=== PATIENT | male | born 1965 | race Caucasian/White ===

== ENCOUNTER 2017-07-11 14:52 | Emergency (ER) | payer BC ==
[2017-07-11 14:57] VITALS: BMI 31.7
--- NOTE | 2017-07-11 15:14 | PDOC ---
Attending Attestation - Resident Resident Name: Gail Reed - ED Attending Attestation I have performed the following: I have examined & evaluated the patient, The case was reviewed & discussed with the resident, I agree w/resident's findings & plan, Exceptions are as noted - HPI HPI: 07/11/17 15:11 Feels like something stuck in his throat - Physicial Exam PE: 07/11/17 15:12 airway patent / no drooling - Medical Decision Making 07/11/17 15:[address] Reed's Assessment and Plan
[2017-07-11] MEDS ORDERED: GLUCAGON 1 MG KIT IVPUSH ONE (15:45)
[2017-07-11] MEDS ORDERED: LORazepam 2 MG/ML SDV VIAL ONE (15:49)
[2017-07-11] MEDS ORDERED: GlUCAGON HUMAN RECOMBINANT 1 MG/VIAL ONE ×2 (15:49→17:18)
[2017-07-11 16:01] LABS: EOSINOPHIL 3.8 % (0-4.5); MCH 29.5 pg (25.7-33.7); MCHC 33.7 g/dl (32.0-35.9); MEAN CELL VOLUME 87.7 fl (80-96); MEAN PLT VOLUME 8.4 fl (7.5-11.1); NEUTROPHILS 64.9 % (42.8-82.8); PLATELET COUNT 244 K/MM3 (134-434); RDW 13.4 % (11.9-15.9); WHITE BLOOD COUNT 8.4 K/mm3 (4.0-10.0)
--- NOTE | 2017-07-11 16:03 | PDOC ---
History of Present Illness - General Chief Complaint: Dysphagia Stated Complaint: SOB Time Seen by Provider: 07/11/17 15:11 History Source: Patient Exam Limitations: No Limitations - History of Present Illness Initial Comments: 52yo M with PMH of esophageal narrowing presents c/o dysphagia since 12:30pm (3 hrs). Pt reports he was eating lunch and suddenly could not keep anything down. He had nbnb vomiting, bringing back up anything he tried to swallow ( water, food). Pt reports this has happened before, it happens about once per month. He usually just waits and the symptoms subside, but he came to ER today because the symptoms did not subside. He also c/o SOB at time of incident which has now resolved. GI: Dr. Toni Hernandez at [facility] 07/11/17 15:54 07/11/17 16:03 Timing/Duration: 1-3 hours Severity: mild Associated Symptoms: denies: chest pain, diaphoresis, fever/chills Past History - Past Medical History Allergies/Adverse Reactions: Allergies Allergy/AdvReac Type Severity Reaction Status Date / Time No Known Allergies Allergy Verified 07/11/17 14:54 Home Medications: Ambulatory Orders NK [No Known Home Medication] 07/11/17 Cardiac Disorders: Yes GI Disorders: Yes (esophageal narrowing) Other medical history: DENIES. - Surgical History Cardiac Surgery: Yes (STENT.) - Family Disease History Family Disease History: Heart Disease: Father (open heart surgery, passed at age 62), Other: Brother (esophageal narrowing) - Psycho/Social/Smoking Cessation Hx Anxiety: No Suicidal Ideation: No Smoking History: Current every day smoker Years of Tobacco Use: 25 Number of Cigarettes Smoked Daily: 30 Information on smoking cessation initiated: No Hx Alcohol Use: Yes (BEER, 1 daily) Drug/Substance Use Hx: No Substance Use Type: Alcohol Review of Systems - Review of Systems Able to Perform ROS?: Yes Is the patient limited [place] proficient: No Constitutional: No: Chills, Diaphoresis, Fever HEENTM: No: Recent change in vision, Ear Pain, Nose Pain, Throat Pain Respiratory: No: Cough, Orthopnea, Shortness of Breath, Stridor, Wheezing, Hemoptysis Cardiac (ROS): No: Chest Pain, Irregular Heart Rate, Palpitations ABD/GI: Yes: Vomiting. No: Constipated, Diarrhea, Rectal Bleeding, Abdominal cramping : No: Dysuria, Hematuria Musculoskeletal: No: Joint Pain, Muscle Pain Neurological: No: Headache, Dizziness *Physical Exam - Vital Signs Last Vital Signs Temp Pulse Resp BP Pulse Ox 97.6 F 78 22 166/78 98 07/11/17 14:53 07/11/17 14:53 07/11/17 14:53 07/11/17 14:53 07/11/17 15:20 - Physical Exam General Appearance: Yes: Nourished, Appropriately Dressed. No: Apparent Distress HEENT: positive: EOMI, Normal Voice, Other (moist mucous membranes). negative: Pale Conjunctivae, Scleral Icterus (R), Scleral Icterus (L) Neck: positive: Trachea midline, Supple. negative: Stridor Respiratory/Chest: positive: Lungs Clear, Normal Breath Sounds. negative: Accessory Muscle Use Cardiovascular: positive: Regular Rhythm, Regular Rate, S1, S2. negative: Murmur Gastrointestinal/Abdominal: positive: Soft. negative: Tender, Distended, Guarding, Rebound Integumentary: positive: Dry, Warm. negative: Rash Neurologic: positive: Fully Oriented, Alert, Normal Mood/Affect, Normal Response Heart Score/ECG Review #1 General ECG Interpretation: Sinus Rhythm, Normal Rate, Normal Intervals, No acute ischemic changes ED Treatment Course - LABORATORY CBC & Chemistry Diagram: 07/11/17 15:45 07/11/17 15:45 Medical Decision Making - Medical Decision Making 52yo M with PMH of esophageal narrowing presenting c/o dysphagia. This has happened for pt before, about once per month, but normally it subsides on its own. Pt takes Pantoprazole 40mg and follows GI. Glucagon 1mg IVPush Ativan 1mg IVPush 07/11/17 16:14 07/11/17 18:02 Test of drinking water performed after first dose of Glucagon and Ativan. Pt vomited the water back up. Glucagon 1mg IVPush (2nd dose) given 20 minutes later pt tolerated test of drinking water. Pt advised that he can go home, but he needs to follow-up with his GI doctor (Dr. Toni Hernandez). *DC/Admit/Observation/Transfer Diagnosis at time of Disposition: Dysphagia - Discharge Dispostion Disposition: HOME Condition at time of disposition: Improved Admit: No - Patient Instructions Additional Instructions: Please follow up with GI doctor Toni Hernandez.
[2017-07-11 16:41] LABS: ANION GAP 12 (8-16); BILIRUBIN,TOTAL 0.6 mg/dL (0.2-1.0); CALCIUM 9.1 mg/dL (8.5-10.1); CO2 24 mmol/L (21-32); GLUCOSE,RANDOM 125 mg/dL (74-106); SGOT/AST 22 U/L (15-37); SGPT/ALT 36 U/L (12-78); TOT PROT 7.2 g/dl (6.4-8.2)
[2017-07-11 16:42] LABS: ALK PHOS 81 U/L (45-117)
[2017-07-11 18:22] VITALS: BP 130/70; PULSE 82; TEMP 98.2
--- NOTE | 2017-07-12 13:14 | EKG ---
Test Reason : Blood Pressure : / mmHG Vent. Rate : 073 BPM Atrial Rate : 073 BPM P-R Int : 166 ms QRS Dur : 102 ms QT Int : 406 ms P-R-T Axes : 053 074 068 degrees QTc Int : 447 ms NORMAL SINUS RHYTHM NORMAL ECG WHEN COMPARED WITH ECG OF 11-FEB-2009 10:23, QT HAS LENGTHENED REPEAT EKG IF CLINICALLY INDICATED Confirmed by JEANIE LAUREN MD ([id number]) on 07/12/2017 1:14:37 PM Referred By: Confirmed By:JEANIE LAUREN MD
== END 2017-07-11 18:22 | disposition home or self-care (01) ==
LOC: JER 14:52
PROC: 3E033NZ Introduction of Analgesics, Hypnotics, Sedatives into Peripheral Vein, Percutaneous Approach (ICD-10-PCS; principal; 2017-07-11)
PROC: 3E033GC Introduction of Other Therapeutic Substance into Peripheral Vein, Percutaneous Approach (ICD-10-PCS; 2017-07-11)
DX: R13.19 Other dysphagia (principal); K22.2 Esophageal obstruction
CPT/HCPCS: 36415; 80053; 85025; 86850; 86900; 86901; 93005; 93010; 99284-25

== ENCOUNTER 2019-07-29 18:49 | Observation (INO) | payer BC ==
[2019-07-29 19:02] VITALS: BMI 31.7
--- NOTE | 2019-07-29 19:30 | PDOC ---
Documentation entered by Andrea Madrigal SCRIBE, acting as scribe for Lisette Jones MD. Lisette Jones MD: This documentation has been prepared by the Rohan cordon Xhesika, SCRIBE, under my direction and personally reviewed by me in its entirety. I confirm that the documentation accurately reflects all work, treatment, procedures, and medical decision making performed by me. History of Present Illness - General Chief Complaint: Chest Pain Stated Complaint: CHEST PAIN History Source: Patient Exam Limitations: No Limitations - History of Present Illness Initial Comments: 07/29/19 19:18 The patient is a 54 year old male, with a significant PMH of HLD, esophageal narrowing and coronary stent (2008) who presents to the emergency department with 1hr of persistent chest pain. Patient states he was driving from work when he felt sudden onset of chest pain associated with L arm numbness, SOB and hot flashes. Patient notes he endorsed similar symptoms in the past, however, his previous symptoms self resolved after a few minutes. Patient notes he took his daily dose of Aspirin. Patient notes his last stress test was roughly 2-3 years ago. FAMILY HISTORY: no pertinent history SOCIAL HISTORY: Pt lives with family and is employed. MEDICATIONS: reviewed ALLERGIES: As per nursing notes 07/29/19 19:30 Assessment and plan: This is a 54-year-old male who comes in complaining of proximal one hour substernal chest pain associated with some shortness of breath and feeling of hot sensation. Patient said chest pain also was associated with some left arm numbness. Patient takes an aspirin a day and to take his aspirin today. Workup initiated including CBC, comp, EKG, chest x-ray, cardiac enzymes, UA. Patient will be admitted to a telemetry bed to rule him out for ACS 07/29/19 20:16 Reevaluation patient's pain is now completely resolved. His troponin was 0.03 however his heart score is 4. Patient will be admitted to a telemetry bed. Patient will be under the hospitalist service. Past History - Past Medical History Allergies/Adverse Reactions: Allergies Allergy/AdvReac Type Severity Reaction Status Date / Time No Known Allergies Allergy Verified 07/29/19 18:55 Home Medications: Ambulatory Orders Aspirin Coated [Ecotrin -] 81 mg PO DAILY 07/29/19 Cholecalciferol (Vitamin D3) [Vitamin D3 -] 1,000 unit PO DAILY 07/29/19 Pantoprazole Sodium [Protonix] 40 mg PO DAILY 07/29/19 Rosuvastatin [Crestor -] 10 mg PO HS 07/29/19 Cardiac Disorders: Yes COPD: No GI Disorders: Yes (esophageal narrowing) - Surgical History Cardiac Surgery: Yes (STENT X1) - Family Disease History Family Disease History: Heart Disease: Father (open heart surgery, passed at age 62), Other: Brother (esophageal narrowing) - Suicide/Smoking/Psychosocial Hx Smoking History: Current every day smoker Years of Tobacco Use: 25 Have you smoked in the past 12 months: Yes Number of Cigarettes Smoked Daily: 25 Information on smoking cessation initiated: Yes Hx Alcohol Use: Yes Drug/Substance Use Hx: No Substance Use Type: Alcohol Review of Systems - Review of Systems Able to Perform ROS?: Yes Comments:: 07/29/19 19:19 General: No fevers or chills, no weakness, no weight loss. (+) hot flashes. HEENT: No change in vision. No sore throat,. No ear pain CardioVascular: (+) chest pain. (+) L arm numbness. (+) SOB. Respiratory:No cough, or wheezing. Gastrointestinal: no nausea, vomiting, diarrhea or constipation, No rectal bleeding Genitourinary: No dysuria, hematuria, or frequency Musculoskeletal: No joint or muscle pain or swelling Neurologic: No headache, vertigo, dizziness or loss of consciousness Psychiatric: nor depression Skin: No rashes or easy bruising Endocrine: no increased thirst or abnormal weight change Allergic: no skin or latex allergy All other systems reviewed and normal *Physical Exam - Vital Signs Last Vital Signs Temp Pulse Resp BP Pulse Ox 98.2 F 75 18 165/98 95 07/29/19 18:51 07/29/19 19:30 07/29/19 19:30 07/29/19 19:30 07/29/19 19:30 - Physical Exam Comments: 07/29/19 19:20 General: Well-nourished, well-developed individual, no acute distress HEENT: Throat: Normal, tonsils normal, no erythema or exudate Neck: Supple, no meningeal signs, no lymphadenopathy Eyes::Pupils equal reactive and round, extraocular motion intact Chest: Nontender to palpation Cardiac: S1-S2 normal, regular rate and rhythm, no murmurs rubs or gallops Respiratory: Lungs clear to auscultation bilateral Abdomen: Soft, nondistended, normal bowel sounds, nontender to palpation diffusely Extremities: Warm, dry, no cyanosis, clubbing, or edema Skin: No rashes Neuro: Alert and oriented x3, nonfocal exam, grossly intact, normal gait Psych: Normal mood and affect Heart Score/ECG Review - History History: Slightly suspicious - Electrocardiogram EKG: Non specific repolarization disturbance - Age Age: 45-65 - Risk Factors Risk Factors Heart Score: Yes Hx Hypercholesterolemia, Yes Hx Hypertension, Yes Positive family hx of cardiac disease Based on the list above the patient has:: >/=3 risk factors or Hx atherosclerotic disease - Troponin Troponin: </= normal limit - Score Heart Score - Total: 4 ED Treatment Course - LABORATORY CBC & Chemistry Diagram: 07/29/19 19:47 07/29/19 19:47 - ADDITIONAL ORDERS Additional order review: Laboratory Results 07/29/19 07/29/19 07/29/19 19:47 19:47 19:47 PT with INR 12.5 INR 1.12 Sodium 136 Potassium 3.8 Chloride 99 Carbon Dioxide 26 Anion Gap 11 BUN 14.0 Creatinine 0.7 Est GFR (CKD-EPI)AfAm 122.27 Est GFR (CKD-EPI)NonAf 105.50 Random Glucose 111 H Calcium 9.2 Total Bilirubin 0.5 AST 29 ALT 35 Alkaline Phosphatase 65 Creatine Kinase 239 Troponin I 0.03 Total Protein 7.2 Albumin 4.2 07/29/19 19:47 RBC 5.55 MCV 88.8 MCHC 33.3 RDW 12.5 MPV 8.0 Neutrophils % 60.4 Lymphocytes % 27.1 Monocytes % 6.5 Eosinophils % 4.8 H Basophils % 1.2 - RADIOLOGY Radiology Studies Ordered: Category Date Time Status CHEST X-RAY PORTABLE* [RAD] Stat Radiology 07/29/19 19:28 Ordered *DC/Admit/Observation/Transfer Diagnosis at time of Disposition: Chest pain Qualifiers: Chest pain type: unspecified Qualified Code(s): R07.9 - Chest pain, unspecified - Discharge Dispostion Condition at time of disposition: Good Decision to Admit order: Yes - Referrals - Patient Instructions - Post Discharge Activity
[2019-07-29 19:55] LABS: BASO % 1.2 % (0-2.0); EOS % 4.8 % (0-4.5); HEMATOCRIT 49.3 % (35.4-49); HEMOGLOBIN 16.4 GM/dl (11.7-16.9); LYMPH % 27.1 % (8-40); MCH 29.6 pg (25.7-33.7); MCHC 33.3 g/dl (32.0-35.9); MEAN CELL VOLUME 88.8 fl (80-96); MONO % 6.5 % (3.8-10.2); NEUT % 60.4 % (42.8-82.8); PLATELET COUNT 268 K/MM3 (134-434); RBC 5.55 M/mm3 (4.00-5.60); RDW 12.5 % (11.9-15.9); WHITE BLOOD COUNT 8.2 K/mm3 (4.0-10.8)
[2019-07-29 19:59] LABS: INR 1.12 (0.82-1.09); PROTHROMBIN TIME (PATIENT) 12.5 SEC (10.2-13.0)
[2019-07-29 20:04] LABS: ALBUMIN 4.2 g/dl (3.4-5.0); BILIRUBIN,TOTAL 0.5 mg/dl (0.2-1); CALCIUM 9.2 mg/dl (8.5-10); CREATININE 0.7 mg/dl (0.55-1.3); POTASSIUM 3.8 mmol/L (3.5-5.1); TOT PROT 7.2 g/dl (6.4-8.2)
--- NOTE | 2019-07-29 20:56 | HP ---
CHIEF COMPLAINT: Chest pain PCP: Ryley Beverly [facility] Dr. Balderas HISTORY OF PRESENT ILLNESS: The patient is a 54 year-old male, with a PMH significant for HLD, CAD s/p stent ([facility], 2009), peripheral arterial disease s/p right leg stent ([facility], 2018)and esophageal narrowing/dysphagia. Patient was driving from work when he felt a sudden onset of mid-sternal chest pain, SOB, feeling hot, and an "odd feeling" in his left arm. The pain lasted for about an hour. Patient had a similar episode a few months ago, same pain in the same location, lasted a few minutes. While in the ED, the patient had another, very brief episode of pain in same location lasting a few minutes, then resolved. 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 He denies palpitations, lightheadedness, orthopnea, and lower extremity edema. ER course was notable for: (1) Troponin neg x 1 (2) BP 189/116 Recent Travel: No PAST MEDICAL HISTORY: Hyperlipideia Coronary artery disease Esophageal narrowing/dysphagia PAST SURGICAL HISTORY: Coronary artery stent 2008 Social History: Smoking: current every day >1ppd for many years Alcohol: beers daily Drugs: denies Family History: Father (open heart surgery, passed at age 62), Mother 82 Alzheimers; Sister smoker with COPD; brother with MS Allergies No Known Allergies Allergy (Verified 07/29/19 18:55) HOME MEDICATIONS: Home Medications Medication Instructions Recorded Aspirin Coated [Ecotrin -] 81 mg PO DAILY 07/29/19 Cholecalciferol (Vitamin D3) 1,000 unit PO DAILY 07/29/19 [Vitamin D3 -] Pantoprazole Sodium [Protonix] 40 mg PO DAILY 07/29/19 Rosuvastatin [Crestor -] 10 mg PO HS 07/29/19 REVIEW OF SYSTEMS CONSTITUTIONAL: Absent: fever, chills, diaphoresis, generalized weakness, malaise, loss of appetite, weight change HEENT: Absent: rhinorrhea, nasal congestion, throat pain, throat swelling, difficulty swallowing, mouth swelling, ear pain, eye pain, visual changes CARDIOVASCULAR: +chest pain, SOB, left arm numbness, decreased exercise tolerance Absent: chest pain, syncope, palpitations, irregular heart rate, lightheadedness , peripheral edema RESPIRATORY: Absent: cough, shortness of breath, dyspnea with exertion, orthopnea, wheezing, stridor, hemoptysis GASTROINTESTINAL: Absent: abdominal pain, abdominal distension, nausea, vomiting, diarrhea, constipation, melena, hematochezia GENITOURINARY: Absent: dysuria, frequency, urgency, hesitancy, hematuria, flank pain, genital pain MUSCULOSKELETAL: Absent: myalgia, arthralgia, joint swelling, back pain, neck pain SKIN: Absent: rash, itching, pallor HEMATOLOGIC/IMMUNOLOGIC: Absent: easy bleeding, easy bruising, lymphadenopathy, frequent infections ENDOCRINE: Absent: unexplained weight gain, unexplained weight loss, heat intolerance, cold intolerance NEUROLOGIC: Absent: headache, focal weakness or paresthesias, dizziness, unsteady gait, seizure, mental status changes, bladder or bowel incontinence PSYCHIATRIC: Absent: anxiety, depression, suicidal or homicidal ideation, hallucinations. PHYSICAL EXAMINATION Vital Signs - 24 hr 07/29/19 07/29/19 07/29/19 18:51 19:00 19:30 Temperature 98.2 F Pulse Rate 79 Pulse Rate [ 74 75 Apical] Respiratory 18 18 18 Rate Blood Pressure 189/116 H Blood Pressure 180/100 H 165/98 [Right Arm] O2 Sat by Pulse 99 96 95 Oximetry (%) 07/29/19 20:25 Temperature Pulse Rate Pulse Rate [ 70 Apical] Respiratory 17 Rate Blood Pressure Blood Pressure 150/95 [Right Arm] O2 Sat by Pulse 95 Oximetry (%) GENERAL: Awake, alert, and fully oriented, in no acute distress. Anxious. HEAD: Normal with no signs of trauma. EYES: Pupils equal, round and reactive to light, extraocular movements intact, sclera anicteric, conjunctiva clear. No lid lag. LUNGS: Breath sounds equal, clear to auscultation bilaterally. No wheezes, and no crackles. No accessory muscle use. HEART: Regular rate and rhythm, S1 and S2 without murmur, rub or gallop. ABDOMEN: Soft, nontender, not distended MUSCULOSKELETAL: Normal range of motion at all joints. No bony deformities or tenderness. No CVA tenderness. UPPER EXTREMITIES: 2+ pulses, warm, well-perfused. No cyanosis. No clubbing. No peripheral edema. LOWER EXTREMITIES: 2+ pulses, warm, well-perfused. No calf tenderness. No peripheral edema. NEUROLOGICAL: Cranial nerves II-XII intact. Normal speech. Normal gait. SKIN: Warm, dry Laboratory Results - last 24 hr 07/29/19 07/29/19 07/29/19 19:47 19:47 19:47 WBC 8.2 RBC 5.55 Hgb 16.4 Hct 49.3 H MCV 88.8 MCH 29.6 MCHC 33.3 RDW 12.5 Plt Count 268 MPV 8.0 Absolute Neuts (auto) 5.0 Neutrophils % 60.4 Lymphocytes % 27.1 Monocytes % 6.5 Eosinophils % 4.8 H Basophils % 1.2 PT with INR INR Sodium 136 Potassium 3.8 Chloride 99 Carbon Dioxide 26 Anion Gap 11 BUN 14.0 Creatinine 0.7 Est GFR (CKD-EPI)AfAm 122.27 Est GFR (CKD-EPI)NonAf 105.50 Random Glucose 111 H Calcium 9.2 Total Bilirubin 0.5 AST 29 ALT 35 Alkaline Phosphatase 65 Creatine Kinase 239 Creatine Kinase Index 2.0 CK-MB (CK-2) 4.8 H Troponin I 0.03 Total Protein 7.2 Albumin 4.2 07/29/19 19:47 WBC RBC Hgb Hct MCV MCH MCHC RDW Plt Count MPV Absolute Neuts (auto) Neutrophils % Lymphocytes % Monocytes % Eosinophils % Basophils % PT with INR 12.5 INR 1.12 Sodium Potassium Chloride Carbon Dioxide Anion Gap BUN Creatinine Est GFR (CKD-EPI)AfAm Est GFR (CKD-EPI)NonAf Random Glucose Calcium Total Bilirubin AST ALT Alkaline Phosphatase Creatine Kinase Creatine Kinase Index CK-MB (CK-2) Troponin I Total Protein Albumin ASSESSMENT/PLAN: Patient was seen and examined on the med-surg floor. ED Nurse Werner was present as he remained with the patient during his time on the med surg floor. Patient denied chest pain during the H&P. A few minutes after, however, NIKKI Caldera advised patient had another very brief episode of mid-sternal chest pain. Ordered O2, nitro SL, ASA 162mg, nitro drip, ECG stat, troponin stat. Advised by nursing blood donor recruiter supervisor patient had not been accepted to the med surg floor and should be returned to the ED. I discussed this with ED Dr. Jones and we agreed it best for patient to remain in ED status. Patient was returned to the ED by NIKKI Caldera and will continue under the care of Dr. Jones. I asked nurse game preserve manager to check on bed availability at [facility] and was told there were no available tele beds and four tele holds in the ED. Dr. Jones advised.
[2019-07-29] MEDS ORDERED: PANTOPRAZOLE 40 MG TABLET (FP) ONE (21:09)
[2019-07-29] MEDS ORDERED: HEPARIN NA (PORCINE) 5,000 UNITS/ML 1ML VIAL ONE (21:29)
[2019-07-29] MEDS ORDERED: PANTOPRAZOLE 40 MG TABLET (FP) PO SCH (22:00)
[2019-07-29] MEDS ORDERED: ROSUVASTATIN CA 10 MG TABLET (FP) PO SCH (22:00)
[2019-07-29] MEDS ORDERED: HEPARIN NA (PORCINE) 5,000 UNITS/ML 1ML VIAL SQ SCH (22:00)
[2019-07-29] MEDS ORDERED: NITROGLYCERIN SUBLINGUAL 1/150 0.4 MG TAB SL ONE (22:43)
[2019-07-29] MEDS ORDERED: NITROGLYCERIN 50MG/D5W 250ML 50 MG/250 ML ML IVPB SCH (22:45)
[2019-07-29] MEDS ORDERED: NITROGLYCERIN SUBLINGUAL 1/150 0.4 MG TAB ONE (22:53)
[2019-07-29] MEDS ORDERED: NITROGLYCERIN 50MG/D5W 250ML 50 MG/250 ML ML IVPB ONE (22:53)
[2019-07-29] MEDS ORDERED: METOPROLOL TARTRATE 25 MG TABLET (FP) PO SCH (23:45)
[2019-07-30 02:11] VITALS: TEMP 97.9
--- NOTE | 2019-07-30 03:55 | ED.PROV ---
Physicial Exam I saw and examined the patient.03:30 Patient was sent upstairs post being admitted to an inpatient bed however once patient got upstairs he had if another episode of chest pain and the he was sent back down to the emergency department and has remained in the emergency department since approximately 10 PM. Patient would've been transferred to [facility] however there was no beds at [facility] so he remained here. His second troponin was elevated at 0.78 so [facility] was called and he was accepted for transfer to [facility] for acute coronary syndrome. Since arrival back in the ED patient has been free of chest pain. Repeat ECG shows normal sinus rhythm, no acute st-t changes, normal ECG - Vital Signs Last Vital Signs Temp Pulse Resp BP Pulse Ox 97.9 F 79 19 153/85 98 07/30/19 02:00 07/30/19 02:00 07/30/19 02:00 07/30/19 02:00 07/30/19 02:00
[2019-07-30 04:07] VITALS: BP 168/78; PULSE 76
[2019-07-30] MEDS ORDERED: ASPIRIN COATED 81 MG TABLET.EC PO SCH (10:00)
[2019-07-30] MEDS ORDERED: ASPIRIN 81 MG CHEWABLE TABLETS PO SCH (10:00)
--- NOTE | 2019-07-30 14:10 | EKG ---
Test Reason : Blood Pressure : / mmHG Vent. Rate : 075 BPM Atrial Rate : 075 BPM P-R Int : 170 ms QRS Dur : 104 ms QT Int : 412 ms P-R-T Axes : 052 059 066 degrees QTc Int : 460 ms NORMAL SINUS RHYTHM NONSPECIFIC ST ABNORMALITY WHEN COMPARED WITH ECG OF 29-JUL-2019 22:35, NO SIGNIFICANT CHANGE WAS FOUND Confirmed by TOM MUNGUIA MD ([id number]) on 07/30/2019 2:10:13 PM Referred By: KUNAL STEPHEN Confirmed By:TOM MUNGUIA MD
--- NOTE | 2019-07-30 14:10 | EKG ---
Test Reason : Blood Pressure : / mmHG Vent. Rate : 071 BPM Atrial Rate : 071 BPM P-R Int : 178 ms QRS Dur : 106 ms QT Int : 424 ms P-R-T Axes : 056 064 075 degrees QTc Int : 460 ms NORMAL SINUS RHYTHM NONSPECIFIC ST ABNORMALITY ABNORMAL ECG WHEN COMPARED WITH ECG OF 29-JUL-2019 18:58, NO SIGNIFICANT CHANGE WAS FOUND Confirmed by TOM MUNGUIA MD ([id number]) on 07/30/2019 2:10:34 PM Referred By: Em HERRERA Confirmed By:TOM MUNGUIA MD
== END 2019-07-30 04:31 ==
LOC: FER 18:49 → SUPCPDRO 18:49 → FM/S 20:18
PROVIDERS: ADMIT Internal Medicine; ATTEND Nurse Practitioner Acute Care
PROC: 3E013GC Introduction of Other Therapeutic Substance into Subcutaneous Tissue, Percutaneous Approach (ICD-10-PCS; principal; 2019-07-29)
DX: R07.89 Other chest pain (principal); E78.5 Hyperlipidemia, unspecified; I25.10 Atherosclerotic heart disease of native coronary artery without angina pectoris; F17.210 Nicotine dependence, cigarettes, uncomplicated; I73.9 Peripheral vascular disease, unspecified; K22.8 Other specified diseases of esophagus; R13.10 Dysphagia, unspecified; E77.8 Other disorders of glycoprotein metabolism; Z95.5 Presence of coronary angioplasty implant and graft; Z79.82 Long term (current) use of aspirin
CPT/HCPCS: 36415; 71045-TC-FY; 80053; 82550; 82553; 84484; 85025; 85610; 85730; 93005; 99285-25; G0378; J1644